=== PATIENT | female | born 1990 | race Caucasian/White ===

== ENCOUNTER 2019-08-14 12:51 | Outpatient (CLI) | payer OTHER, SELFPAY | END 2019-08-14 12:52 | disposition home or self-care (01) | LOC: ANHBWCAUD 12:53 | DX: S09.30 Unspecified injury of middle and inner ear (principal); H90.72 Mixed conductive and sensorineural hearing loss, unilateral, left ear, with unrestricted hearing on the contralateral side | CPT/HCPCS: 92557; 92567 ==

== ENCOUNTER 2019-08-29 13:40 | Outpatient (RCR) | payer OTHER, SELFPAY | END 2019-11-27 23:59 | disposition home or self-care (01) | LOC: ANHBWCAUD 13:40 | DX: Z46.1 Encounter for fitting and adjustment of hearing aid (principal) | CPT/HCPCS: V5241; V5257; V5264 ==

== ENCOUNTER 2020-09-10 09:33 | Outpatient (CLI) | payer OTHER, SELFPAY ==
--- NOTE | ~2020-09-10 | US_ITS ---
EXAMINATION: US OB /maternal detail EXAM DATE: 09/10/2020 10:40 INDICATION: Anatomy scan. 2nd trimester. TECHNIQUE: Pelvic obstetrical transabdominal sonogram was performed by a technologist. There are mu ltiple grayscale and Doppler images available for interpretation. There are no earlier studies of th is gestation for comparison. FINDINGS: There is a single fetus identified in variable presentation with a heart rate of 141 beats per minute. The placenta is located in the posterior fundal position. There is no sonographic eviden ce of retroplacental hemorrhage identified. The amniotic fluid index is 13.5 centimeters, which is no rmal. Placental margin to internal cervical os distance is 9.0 cm. BIOMETRIC DATA: Biparietal diameter (BPD): 4.5cm ----------------> 19 weeks 5 days. Head circumference (HC): 16.7 cm ----------------> 19 weeks 3 days. Abdominal circumference (AC): 15.2 cm ----------> 20 weeks 3 days. Femur length (FL): 3.1 cm --------------------------> 19 weeks 5 days. These measurements are concordant. HC/AC ratio is 1.10 (The 5th -- 95th percentile range is 1.08-1.26. Estimated weight is 326 g +/- 49 g. This is the 94th percentile when the currently reported cl inical gestation age 19 weeks 0 days, clinical estimated date of delivery ([place]) 02/04/2021 is used . estimated gestational age based on measurements from this exam is 19 weeks 6 days, with an es timated date of delivery ([place]) 01/29/2021. ANATOMIC SURVEY: The following anatomy is identified and is sonographically normal in appearance: Cerebral ventricles Cerebellum Cisterna magna Nuchal fold CTL-spine Four-chamber heart Diaphragm Stomach Kidneys Bladder Three-vessel cord Cord insertion The cardiac ventricular outflow tract views are suboptimal. IMPRESSION: 1. Single fetus in variable presentation with heart rate 141 beats per minute. 2. Estimated weight of 326 grams, 94th percentile using the currently reported clinical gestat ion age of 19 weeks 0 days, [place]) 02/04/2021. 3. Suboptimal cardiac views. Four-chamber heart was confirmed. Reviewed, dictated and finalized at location A. UR MARKET ECONOMIST IMPRESSION: 1. Single fetus in variable presentation with heart rate 141 beats per minute. 2. Estimated weight of 326 grams, 94th percentile using the currently re ported clinical gestation age of 19 weeks 0 days, [place]) 02/04/2021. 3. Suboptimal cardiac views. Four-chamber heart was confirmed.
== END 2020-09-10 09:34 | disposition home or self-care (01) ==
LOC: ANHIMG 09:34
PROVIDERS: PCP Internal Medicine; Visit Provider Obstetrics & Gynecology
DX: Z36.9 Encounter for antenatal screening, unspecified (principal); Z3A.19 19 weeks gestation of pregnancy
CPT/HCPCS: 76805

== ENCOUNTER 2020-10-15 13:12 | Outpatient (CLI) | payer OTHER, SELFPAY ==
--- NOTE | ~2020-10-15 | US_ITS ---
EXAMINATION: 2 DATE: 26 INDICATION: 4 TECHNIQUE: Real-time ultrasound of the pelvis was performed. The interpreting radiologist was not pre sent for the study. COMPARISON: 09/10/2020 FINDINGS: There is a single living fetus in vertex presentation. The placenta is posterior. car diac activity and movement are noted. heart rate is 143 beats per minute (bpm). The amnio tic fluid index is subjectively normal. The following biometric data were obtained: Biparietal diameter (BPD): 6.2 cm; head circumference (HC): 22.1 cm; abdominal circumference (AC): 20 .1 cm; femur length (FL): 4.3 cm. The femoral length to biparietal diameter ratio is greater than two standard deviations below the theodora n. These measurements are otherwise concordant. Estimated weight is 713 g +/- 107 g, which correlates with the 70th percentile when 02/04/2021 i s used as estimated date of delivery. As single measurements, these parameters are each equal to the following estimated gestational ages w ith ranges of +/- 2 standard deviations: BPD: 25 weeks 1 days ( 23 weeks 0 days - 27 weeks 3 days). HC: 24 weeks 1 days ( 22 weeks 1 days - 26 weeks 2 days). AC: 24 weeks 5 days ( 22 weeks 4 days - 26 weeks 6 days). FL: 24 weeks 3 days ( 22 weeks 2 days - 26 weeks 4 days). estimated gestational age based solely on measurements from this exam is 24 weeks 4 days +/- 1 weeks 5 days. IMPRESSION: 1. Single living fetus in vertex presentation. 2. Normal-appearing spine and heart. 3. Estimated weight is 713 g +/- 107 g, which correlates with the 70th percentile when is used as estimated date of delivery. 4. Femoral length to biparietal diameter ratio greater than two standard deviations below the mean. Reviewed, dictated and finalized at location A. IMPRESSION: 1. Single living fetus in vertex presentation. 2. Normal-appearing spine and heart. 3. Estimated weight is 713 g +/- 107 g, which correlates with the 70th rcentile when 02/04/2021 is used as estimated date of delivery. 4. Femoral length to biparietal diameter ratio greater than two standard deviat ions below the mean.
== END 2020-10-15 13:13 | disposition home or self-care (01) ==
LOC: ANHIMG 13:19
PROVIDERS: PCP Internal Medicine; Visit Provider Obstetrics & Gynecology
DX: Z36.9 Encounter for antenatal screening, unspecified (principal); Z3A.24 24 weeks gestation of pregnancy
CPT/HCPCS: 76816

== ENCOUNTER 2020-11-09 09:48 | Outpatient (CLI) | payer OTHER, SELFPAY ==
[2020-11-09 18:41] LABS: Basophils Percent Auto 0.3 % (0.2-1.2); Eosinophils Absolute Auto 0.2 K/mm3 (0-0.3); Eosinophils Percent Auto 1.9 % (0-4.4); Hematocrit 33.2 % (37.0-47.0); Hemoglobin 10.8 g/dL (12.0-15.0); Immature Granulocyte Absolute 0.07 K/mm3 (0.00-0.031); Immature Granulocyte Percent A 0.8 % (0-0.5); Lymphocytes Absolute Auto 2.28 K/mm3 (0.9-3.2); Lymphocytes Percent Auto 26.4 % (18.3-44.2); Mean Corpuscular HGB Conc 32.5 g/dl (32-36); Mean Corpuscular Hemoglobin 27.5 pg (26-34); Mean Corpuscular Volume 84.5 fl (80-100); Mean Platelet Volume 9.3 fl (7.4-10.4); Monocytes Absolute Auto 0.6 K/mm3 (0.1-0.6); Monocytes Percent Auto 6.4 % (2.6-8.5); Neutrophils Absolute Auto 5.6 K/mm3 (1.3-6.7); Neutrophils Percent Auto 64.2 % (45.5-73.1); Platelet Count Result 322 k/mm3 (150-375); Red Blood Count 3.93 M/mm3 (4.2-5.4); Red Cell Distribution Width 13.6 % (11.5-14.5); White Blood Count 8.6 K/mm3 (4.5-10.0)
[2020-11-09 18:51] LABS: Glucose 1 Hour PP 50gm Dose 92 mg/dL
[2020-11-09 19:31] LABS: HIV 1/2 Ab P24 Ag Result Negative (Negative)
== END 2020-11-09 09:49 | disposition home or self-care (01) ==
PROVIDERS: PCP Internal Medicine; Visit Provider Obstetrics & Gynecology
DX: Z34.92 Encounter for supervision of normal pregnancy, unspecified, second trimester (principal); Z3A.19 19 weeks gestation of pregnancy
CPT/HCPCS: 36415; 82947; 85025; 86703; G0432

== ENCOUNTER 2020-11-22 11:01 | Outpatient (CLI) | payer OTHER, SELFPAY ==
--- NOTE | ~2020-11-22 | US_ITS ---
EXAMINATION: US OB follow up DATE: 11/22/2020 11:44 INDICATION: growth assessment during third trimester TECHNIQUE: Real-time ultrasound of the pelvis was performed. The interpreting radiologist was not pre sent for the study. COMPARISON: 10/15/2020 FINDINGS: There is a single living fetus in breech presentation. The placenta is fundal. cardia c activity and movement are noted. heart rate is 144 beats per minute (bpm). The amniotic fluid index is 15.1 cm which is normal. The following biometric data were obtained: Biparietal diameter (BPD): 7.5 cm; head circumference (HC): 28.7 cm; abdominal circumference (AC): 26 .9 cm; femur length (FL): 5.9 cm. These measurements are concordant. Estimated weight is 1677 g +/- 251 g, which correlates with the 62nd percentile when 01/29/2021 is used as estimated date of delivery. As single measurements, these parameters are each equal to the following estimated gestational ages w ith ranges of +/- 2 standard deviations: BPD: 30 weeks 2 days +/- 3 weeks 1 days. HC: 31 weeks 4 days +/- 3 weeks 0 days. AC: 31 weeks 0 days +/- 3 weeks 0 days. FL: 30 weeks 6 days +/- 3 weeks 0 days. estimated gestational age based solely on measurements from this exam is 31 weeks 0 days +/- 2 weeks 1 days. IMPRESSION: 1. Single living fetus in breech presentation. 2. Normal amniotic fluid index. 3. Estimated weight is 1677 g +/- 251 g, which correlates with the 62nd percentile when 01/30/20 21 is used as estimated date of delivery. Reviewed, dictated and finalized at location A. IMPRESSION: 1. Single living fetus in breech presentation. 2. Normal amniotic fluid index. 3. Estimated weight is 1677 g +/- 251 g, which correlates with the 62nd p ercentile when 01/29/2021 is used as estimated date of delivery.
== END 2020-11-22 11:02 | disposition home or self-care (01) ==
PROVIDERS: PCP Internal Medicine; Visit Provider Obstetrics & Gynecology
DX: O28.3 Abnormal ultrasonic finding on antenatal screening of mother (principal); Z3A.31 31 weeks gestation of pregnancy
CPT/HCPCS: 76816

== ENCOUNTER 2020-12-24 09:49 | Outpatient (CLI) | payer OTHER, SELFPAY ==
--- NOTE | ~2020-12-24 | US_ITS ---
EXAMINATION: US OB follow up DATE: 12/24/2020 10:15 INDICATION: Maternal care for excessive growth during third trimester . TECHNIQUE: Real-time ultrasound of the pelvis was performed. The interpreting radiologist was not pre sent for the study. COMPARISON: None. FINDINGS: There is a single living fetus in vertex presentation. The placenta is fundal. heart rate is 1 39 beats per minute (bpm). The amniotic fluid index is 15.8 cm, which is normal (5th%-95%: 7.9-24.9 cm at 35 weeks estimated gestational age). The following biometric data were obtained: BPD: 8.9 cm -> 35 weeks 6 days Head circumference: 31.6 cm -> 35 weeks 4 days Abdominal circumference: 30.2 cm -> 34 weeks 1 days Femur length: 6.9 cm -> 35 weeks 1 days These measurements are concordant. Head circumference to abdominal circumference ratio: 1.05 (normal range 0.93-1.11). Estimated weight: 2515 g (+/-) 377 g or 5 lbs. 9 oz. (+/-) 13 oz. IMPRESSION: 1. Single living fetus in vertex presentation with heart rate of 139 bpm. 2. Normal amniotic fluid index of 15.8 cm. 3. Estimated weight is 44th percentile by Hadlock criteria when 01/29/2021 is used as the estima gurpreet date of delivery ([place]). Please correlate with clinical information or earlier ultrasounds for mos t accurate [place]. Reviewed, dictated and finalized at location A. IMPRESSION: 1. Single living fetus in vertex presentation with heart rate of 139 bpm. 2. Normal amniotic fluid index of 15.8 cm. 3. Estimated weight is 44th percentile by Hadlock criteria when 01/29/2021 is used as the estimated date of delivery ([place]). Please correlate with clinica l information or earlier ultrasounds for most accurate [place].
== END 2020-12-24 09:50 | disposition home or self-care (01) ==
LOC: ANHIMG 09:50
PROVIDERS: PCP Internal Medicine; Visit Provider Obstetrics & Gynecology
DX: O36.60X0 Maternal care for excessive fetal growth, unspecified trimester, not applicable or unspecified (principal); Z3A.00 Weeks of gestation of pregnancy not specified
CPT/HCPCS: 76816

== ENCOUNTER 2021-01-31 05:11 | Inpatient (IN) | payer OTHER, SELFPAY ==
[2021-01-31] VITALS (66 sets, daily range): BP systolic 107–168; BP diastolic 49–123; PULSE 64–116; RESP 18–22; TEMP 35.9–36.9; O2SAT 83–100; BMI 53.3
--- NOTE | 2021-01-31 05:32 | LDADM ---
This patient, Aneta Wisdom, was admitted to Labor/Delivery/Recovery 103 on 01/31/21 at 05:11. Plans for labor, pain management and were discussed with patient. Patient/family oriented to hospital policies and general routines including ID bracelet, bed and alarms, visiting hours, pain management, procedures, bathroom and other care routines, personal items, smoking policy, room service/diet and guest tray routines, infant security routines, and visiting hours. Patient/Family are encouraged to report perceived risks to care and to ask questions if they do not understand what they are told or what they should do. See OBIX for further documentation.
[2021-01-31] MEDS: AMPICILLIN 2 GM/NS 100 ML 2 GM/100 ML BAG IVPB (06:03)
[2021-01-31] MEDS: LACTATED RINGERS 1,000 ML 125 ML IV CONT ×2 (06:04→17:01)
[2021-01-31] MEDS: OXYTOCIN 30 UNITS/NS 500 ML 30 UNITS/500 ML BAG IV CONT (06:18)
[2021-01-31 06:19] LABS: Basophils Percent Auto 0.4 % (0.2-1.2); Eosinophils Absolute Auto 0.1 K/mm3 (0-0.3); Eosinophils Percent Auto 1.3 % (0-4.4); Hematocrit 35.6 % (37.0-47.0); Hemoglobin 11.7 g/dL (12.0-15.0); Lymphocytes Percent Auto 33.1 % (18.3-44.2); Mean Corpuscular HGB Conc 32.9 g/dl (32-36); Mean Corpuscular Hemoglobin 26.8 pg (26-34); Mean Corpuscular Volume 81.7 fl (80-100); Mean Platelet Volume 9.5 fl (7.4-10.4); Monocytes Percent Auto 10.3 % (2.6-8.5); Neutrophils Absolute Auto 5.4 K/mm3 (1.3-6.7); Neutrophils Percent Auto 53.9 % (45.5-73.1); Platelet Count Result 303 k/mm3 (150-375); Red Blood Count 4.36 M/mm3 (4.2-5.4); Red Cell Distribution Width 14.6 % (11.5-14.5)
[2021-01-31 06:35] LABS: Amphetamine Screen Urine Negative (Negative); Barbiturate Screen Urine Negative (Negative); Benzodiazepines Screen Urine Negative (Negative); Cannabinoid Screen Urine Positive (Negative); Cocaine Screen Urine Negative (Negative); Methadone Screen Urine Negative (Negative); Opiate Screen Urine Negative (Negative); Phencyclidine Screen Urine Negative (Negative)
[2021-01-31] MEDS: CALCIUM CARBONATE (TUMS) 500 MG (200 MG ELEMENTAL) PO (06:38)
--- NOTE | 2021-01-31 07:42 | PM.IMHP ---
H&P: HPI History of Present Illness Date/Time: 01/31/21 07:42 at 39+3 for elective induction of labor. No complaints Chief Complaint: induction of labor Review of Systems Review of Systems: All systems reviewed & are unremarkable except as noted in HPI and below PMFSH Past Medical History Medical History Acid reflux Asthma Hepatitis C Vaginal delivery X2 09/26/10 Full term male 8lbs 14oz 11/26/14 Full term female 9lbs 5oz Surgical History Surgical History History of ankle surgery 2015, 2017 Family History Family History Mother Diabetes mellitus Hypertension Hyperlipidemia Cerebrovascular accident Grandparent Diabetes mellitus Cerebrovascular accident Hypertension Hyperlipidemia Father Cerebrovascular accident Sibling Hypertension Hyperlipidemia Social History Social History Smoking status: Never smoker Second hand tobacco smoke exposure: No Alcohol intake: former Substance use: current Substance use type: marijuana Last use: November 2020 Spiritual care concerns: No Meds Home Medications and Allergies Home Medications Medication Instructions Recorded Confirmed Type vitamin no.115-iron 29 1 tablet PO DAILY #90 tablet 07/06/20 01/31/21 Rx mg-folic acid 1 mg chewable tablet docusate sodium 100 mg capsule 100 mg PO PRN 08/04/20 01/31/21 History ferrous sulfate 325 mg (65 mg 325 mg PO DAILY 11/17/20 01/31/21 History iron) tablet Allergies Allergy/AdvReac Type Severity Reaction Status Date / Time No Known Allergies Allergy Verified 01/27/21 15:03 Vital Signs Vital Signs - 24 hr 01/31/21 06:19 01/31/21 06:31 01/31/21 06:46 Pulse Rate 84 88 85 Blood Pressure 126/49 L 123/65 124/54 L 01/31/21 07:01 01/31/21 07:16 01/31/21 07:32 Pulse Rate 87 84 73 Blood Pressure 126/82 136/80 126/53 L Exam Const: General: healthy appearing, no acute distress, alert and awake Resp: Auscultation: clear to auscultation bilaterally Cardio: Rate: regular rate Rhythm: regular rhythm GI: Inspection: non-distended and other (gravid) GI Palp: Yes Soft to palpation and No Tenderness to palpation present (GI) : Manual OB Exam: dilated 2 cm, effaced 50% and station -2 Amniotic Fluid: clear (AROM done at 0735) Extrem: General: no pedal edema and no calf tenderness Psych: Mental Status: mental status grossly normal H&P: Results Labs Labs: Short CBC 01/31/21 Range/Units 06:04 WBC 10.0 (4.5-10.0) K/mm3 Hgb 11.7 L (12.0-15.0) g/dL Hct 35.6 L (37.0-47.0) % Plt Count 303 (150-375) k/mm3 Assessment and Plan Assessment and plan (1) Encounter for induction of labor: Code(s): Z34.90 - Encounter for supervision of normal , unspecified, unspecified trimester Status: Acute Assessment and Plan: at 39+3 for elective induction of labor. AROM performed. GBS + so continue pitocin and antibiotics. BTL scheduled tomorrow at 1:30 pm
[2021-01-31 09:52] LABS: Rapid Plasma Reagin Non-Reactive (NonReactive)
[2021-01-31] MEDS: AMPICILLIN 1 GM/NS 50 ML 1 GM/50 ML BAG IVPB ×3 (10:02→17:47)
--- NOTE | 2021-01-31 10:46 | WPDANESEPP ---
Anes - Eval Pre Procedure Procedure: labor epidural Operation Date: 02/01/21 13:30 Proposed Procedures p Post- Bilateral Tubal Ligation - Aneta Huddleston MD Date/Time: 01/31/21 10:46 Pre Op Diagnosis: IOL Patient Data Age: 30 Gender: F Height: 1.7 m Weight: 154.5 kg Last Vital Signs Temp 36.7 C 01/31/21 09:04 Pulse 79 01/31/21 10:32 Resp 18 01/31/21 09:04 BP 107/79 01/31/21 10:32 Allergies Allergy/AdvReac Type Severity Reaction Status Date / Time No Known Allergies Allergy Verified 01/27/21 15:03 Home Medications Medication Instructions Recorded Confirmed Type vitamin no.115-iron 29 1 tablet PO DAILY #90 tablet 07/06/20 01/31/21 Rx mg-folic acid 1 mg chewable tablet docusate sodium 100 mg capsule 100 mg PO PRN 08/04/20 01/31/21 History ferrous sulfate 325 mg (65 mg 325 mg PO DAILY 11/17/20 01/31/21 History iron) tablet Laboratory Tests 01/31/21 01/31/21 01/31/21 06:04 06:04 06:04 WBC 10.0 K/mm3 K/mm3 (4.5-10.0) RBC 4.36 M/mm3 M/mm3 (4.2-5.4) Hgb 11.7 g/dL L g/dL (12.0-15.0) Hct 35.6 % L % (37.0-47.0) MCV 81.7 fl fl (80-100) MCH 26.8 pg pg (26-34) MCHC 32.9 g/dl g/dl (32-36) RDW 14.6 % H % (11.5-14.5) Plt Count 303 k/mm3 k/mm3 (150-375) MPV 9.5 fl fl (7.4-10.4) Immature Gran % (Auto) 1.0 % H % (0-0.5) Neut % (Auto) 53.9 % % (45.5-73.1) Lymph % (Auto) 33.1 % % (18.3-44.2) [place] % (Auto) 10.3 % H % (2.6-8.5) Eos % (Auto) 1.3 % % (0-4.4) Baso % (Auto) 0.4 % % (0.2-1.2) Lymph # (Auto) 3.30 K/mm3 H K/mm3 (0.9-3.2) [place] # (Auto) 1.0 K/mm3 H K/mm3 (0.1-0.6) Eos # (Auto) 0.1 K/mm3 K/mm3 (0-0.3) Baso # (Auto) 0.0 K/mm3 K/mm3 (0.0-0.1) Abs Immat Gran (auto) 0.10 K/mm3 H K/mm3 (0.00-0.031) Absolute Neuts (auto) 5.4 K/mm3 K/mm3 (1.3-6.7) Absolute Nucleated RBC 0.0 K/mm3 K/mm3 (0.0-0.012) Nucleated RBC % 0.0 % % (0.0-0.2) Urine Opiates Screen Urine Methadone Screen Ur Barbiturates Screen Ur Phencyclidine Scrn Ur Amphetamine Screen U Benzodiazepines Scrn Urine Cocaine Screen U Cannabinoids Screen RPR Non-reactive (NonReactive) Blood Type O Positive Antibody Screen Negative 01/31/21 06:06 WBC RBC Hgb Hct MCV MCH MCHC RDW Plt Count MPV Immature Gran % (Auto) Neut % (Auto) Lymph % (Auto) [place] % (Auto) Eos % (Auto) Baso % (Auto) Lymph # (Auto) [place] # (Auto) Eos # (Auto) Baso # (Auto) Abs Immat Gran (auto) Absolute Neuts (auto) Absolute Nucleated RBC Nucleated RBC % Urine Opiates Screen Negative (Negative) Urine Methadone Screen Negative (Negative) Ur Barbiturates Screen Negative (Negative) Ur Phencyclidine Scrn Negative (Negative) Ur Amphetamine Screen Negative (Negative) U Benzodiazepines Scrn Negative (Negative) Urine Cocaine Screen Negative (Negative) U Cannabinoids Screen Positive A (Negative) RPR Blood Type Antibody Screen Patient hx anesthesia problems: none Family hx anesthesia problems: none PMFSH Past Medical History Medical History Acid reflux Asthma Hepatitis C Vaginal delivery X2 09/26/10 Full term male 8lbs 14oz 11/26/14 Full term female 9lbs 5oz Surgical History Surgical History History of ankle surgery 2015, 2017 Family History Family History (Reviewed 01/31/21 @ 10:47 by Isatu
[2021-01-31] MEDS: fentaNYL CITRATE INJ (*CRX) 100 MCG/2 ML VIAL 50 MCG IV PUSH ×2 (13:18→13:45)
[2021-01-31] MEDS: fentaNYL CITRATE INJ (*CRX) 100 MCG/2 ML VIAL IV PUSH ×2 (15:04→16:09)
--- NOTE | 2021-01-31 18:19 | PM.OBPRVD ---
OB - Delivery Note Procedure Delivery date: 01/31/21 Procedure: Procedures Operation Date: 02/01/21 13:30 <No data on this case meets the specified criteria> events: Labor Induction Intrapartal events: None Induction method: AROM and per pitocin protocol Delivery monitor: internal FHT and internal uterine Route of delivery: Laceration Description: Perineal - 2nd Degree Delivery repair: vicryl (3-0) Specimen: No Quantitative Blood Loss (ml): 288 Anesthesia type: Epidural Disposition: floor [place] Baby Date of : 01/31/21 Time of : 17:59 Weeks of gestation at delivery: 39 Infant gender: Male Weight (pounds): 7 Weight (ounces): 8 presentation: vertex position: Right Occiput Anterior Placenta delivery description: Spontaneous cord vessel description: 3 Vessels, Nuchal Cord, Tight, Clamped/Cut and Around Body x1 score one minute: 8 score five minutes: 9
[2021-01-31] MEDS: OXYTOCIN 30 UNITS/NS 500 ML 30 UNITS/500 ML BAG 125 UNITS IV CONT (18:41)
--- NOTE | 2021-01-31 21:31 | OBPPTRN ---
Patient transferred to post room 285. Oriented to unit, room, information board, rooming in, admission packet and security measures. Patient verbalizes understanding. Patient states baby's father is not involved.
[2021-01-31] MEDS: ACETAMINOPHEN 325 MG TABLET 650 MG PO (21:39)
[2021-01-31] MEDS: IBUPROFEN 600 MG TABLET PO (21:39)
[2021-02-01] VITALS (11 sets, daily range): BP systolic 85–149; BP diastolic 53–90; PULSE 62–80; RESP 16–21; TEMP 36–36.9; O2SAT 99–100
[2021-02-01] MEDS: ACETAMINOPHEN 325 MG TABLET 650 MG PO ×4 (04:25→23:13)
[2021-02-01] MEDS: IBUPROFEN 600 MG TABLET PO ×4 (04:25→23:14)
[2021-02-01 05:14] LABS: Hematocrit 32.2 % (37.0-47.0); Hemoglobin 10.2 g/dL (12.0-15.0)
--- NOTE | 2021-02-01 07:43 | WPDANLDPN2 ---
Anes-Prog Note L&D Date/Time: 02/01/21 07:43 Comfortable throughout: labor and delivery Neuraxial method: epidural Epidural/Spinal procedure site: clean & non-tender Neuro status: Neuro function grossly intact. Cardiovascular status: normal Respiratory status: normal Airway patency: baseline Mental status: baseline Post-Op hydration status: normal Vital Signs: Last Vital Signs Temp 36.2 C L 02/01/21 04:20 Pulse 73 02/01/21 04:20 Resp 18 02/01/21 04:20 BP 134/58 L 02/01/21 04:20 Pulse Ox 99 02/01/21 04:20 Pain score (VAS): 2 I/O: Intake & Output 01/31/21 01/31/21 02/01/21 15:59 23:59 07:59 Intake Total 1100 450 Output Total 173 Balance 1100 277 Post-procedural complaints: none Patient feedback: Patient satisfied with anesthetic care.
--- NOTE | 2021-02-01 07:59 | PM.OBPNVD ---
OB - PN: Subj Subjective Date/time seen: 02/01/21 07:59 Patient comments: no complaints, pain well controlled and other (Lochia similar to menses) [place] baby status: doing well OB - PN: Obj Data Labs CBC & Chem 7: 02/01/21 04:07 Labs: Laboratory Results - last 24 hr 01/31/21 02/01/21 06:04 04:07 Hgb 10.2 L Hct 32.2 L RPR Non-reactive OB - PN A/P Assessment and Plan (1) Contraceptive management: Code(s): Z30.9 - Encounter for contraceptive management, unspecified Status: Acute Assessment and Plan: Planning BTL at 1:30 pm today. NPO until then. She wishes to proceed and signed BTL consent Plan day: 1 (s/p vaginal delivery, doing well) Plan: routine care Time Spent With Patient Time: Total time spent is greater than 50% in coordination of care (as documented) at patient's floor/unit and/or counseling patient: Time with patient: less than 15 minutes Exam Const: General: no acute distress GI: Inspection: other (Fundus firm and nontender at umbilicus) GI Palp: Yes Soft to palpation and No Tenderness to palpation present (GI) Extrem: General: no edema
--- NOTE | 2021-02-01 10:38 | PCCCNOTE ---
Addendum entered by Ashley Erwin, VIKRAM 02/01/21 13:40: 1340: Received phone call from Radha with [employer] who reports will come see pt. and baby around 4 PM. RADHA zamora. [phone] due to [place] office being closed. Original Note: Per Care Coordination: Received referral regarding pt. and baby's UDS positive for THC. Baby's meconium is pending. Pt. reports using THC for her appetite. Pt. reports her and baby boy will be living with her brother Efrain in [place], [place]. Pt. reports having two other children, 10 year old son Elder and 6 year old daughter Kyung. Pt. states Elder lives with his father in [place] and Kyung has been adopted by pt's sister Tory due to [employer] terminating pt's maternal rights, and they live in [place]. Pt. reports they terminated rights due to pt's THC usage. Pt. reports having a friend who is a male and his mother was pt's support person. Pt. reports will be having her tubes tied this afternoon and that this baby was a bit of a surprise. Pt. states has all the support I need. Pt. reports having all necessary baby supplies, and denies in need of anything. Pt. reports being set up with both WIC and [employer], and has Medicaid insurance. Pt. reports having prior DCFS involvement, and all cases are said to be closed. Pt. states the leodan recent case was four years ago. Called [employer]CF[employer] and per Elsie Jj, they are taking report and will see pt. within 24 hours. Elsie states it will likely be today and will call Care Coordination prior to coming to confirm pt. is not in surgery at time of visit. Intake Report #[id number]. CANTS [facility] out [facility] [phone]. RADHA Mendoza aware of above.
--- NOTE | 2021-02-01 12:08 | PC.NURSE ---
Patient taken to pre-op per stretcher. Infant out to the nursery with RN.
--- NOTE | 2021-02-01 12:47 | WPDHPUPDATE1 ---
History and Physical Update Update Date/Time: 02/01/21 12:47 History and Physical has been reviewed, including an updated exam of the patient. There are NO changes in the patient's condition. Risks, benefits, and alternatives have been discussed and questions answered. Patient agrees to proceed with procedure.
[2021-02-01] MEDS: LACTATED RINGERS 1,000 ML 30 ML IV CONT ×2 (13:17→15:28)
--- NOTE | 2021-02-01 13:39 | WPDANESEPPF ---
Anes - Initial Pre Proc Eval Procedure: Operation Date: 02/01/21 13:30 Proposed Procedures p Post- Bilateral Tubal Ligation - Aneta Huddleston MD Date/Time: 02/01/21 13:39 Surgeon: Aneta Huddleston MD Pre Op Diagnosis: IOL Patient Data Age: 30 Gender: F Height: 1.7 m Weight: 154.5 kg Last Vital Signs Temp 96.9 F L 02/01/21 12:22 Pulse 69 02/01/21 12:22 Resp 16 02/01/21 12:22 BP 146/72 H 02/01/21 12:22 Pulse Ox 99 02/01/21 12:22 Allergies Allergy/AdvReac Type Severity Reaction Status Date / Time No Known Allergies Allergy Verified 01/27/21 15:03 Home Medications Medication Instructions Recorded Confirmed Type vitamin no.115-iron 29 1 tablet PO DAILY #90 tablet 07/06/20 01/31/21 Rx mg-folic acid 1 mg chewable tablet docusate sodium 100 mg capsule 100 mg PO PRN 08/04/20 01/31/21 History ferrous sulfate 325 mg (65 mg 325 mg PO DAILY 11/17/20 01/31/21 History iron) tablet Laboratory Tests 02/01/21 04:07 Hgb 10.2 g/dL L g/dL (12.0-15.0) Hct 32.2 % L % (37.0-47.0) Patient hx anesthesia problems: none Family hx anesthesia problems: none PMFSH Past Medical History Medical History Acid reflux Asthma Hepatitis C Vaginal delivery X2 09/26/10 Full term male 8lbs 14oz 11/26/14 Full term female 9lbs 5oz Surgical History Surgical History History of ankle surgery 2015, 2017 Family History Family History Mother Diabetes mellitus Hypertension Hyperlipidemia Cerebrovascular accident Grandparent Diabetes mellitus Cerebrovascular accident Hypertension Hyperlipidemia Father Cerebrovascular accident Sibling Hypertension Hyperlipidemia Social History Social History Smoking status: Never smoker Second hand tobacco smoke exposure: No Alcohol intake: never Substance use: current Substance use type: marijuana Last use: November 2020 Living arrangements: with family Spiritual care concerns: No Anes - Eval Final PreProcedure Day of Procedure 02/01/21 13:39 Patient weight: super morbidly obese Heart: regular rate and rhythm Lungs: clear to auscultation Airway: Mallampati scale class III Neurological: alert and oriented Last oral intake: >/= 8 hours ASA classification: III Emergent: no Anesthetic plan: proceed Anesthesia type and monitoring: general ETT and standard monitoring Informed Consent: The patient's anesthetic plan and its attendant risks and benefits were discussed with the patient/family/POA. Questions were solicited and answers provided to the satisfaction of the patient/family/POA.
[2021-02-01] MEDS: BUPIVACAINE/EPINEPHRINE 0.5% 10 ML VIAL 5 ML INFILTRATE (14:45)
--- NOTE | 2021-02-01 15:17 | P.OP_ITS ---
Procedure Note - Detailed Date of Procedure 02/01/21 Pre-op Diagnosis Desires sterilization Post-op Diagnosis same Procedure Performed bilateral tubal ligation Surgeon Aneta Huddleston MD Anesthesia general Indications Desires sterilization, day 1 Findings uterus firm at umbilicus, bilateral normal fallopian tubes Description of Procedure She was taken to the operating room where general anesthesia was obtained. She was prepared and draped in the normal sterile fashion in the dorsal supine position. Marcaine was injected infraumbilically. The infraumbilical fold was tented up using 2 Allis clamps. A skin incision was made in the infraumbilical fold between the 2 Allis clamps. The Allis clamps were repositioned cephalad and caudad. The underlying tissue was with hemostats at. The fascia was tented up with 2 hemostats and entered sharply with the Metzenbaum scissors. The peritoneum was tented up with 2 hemostats and entered sharply with Metzenbaum scissors. The fascial incision was then extended using the Davalos scissors. The patient was air planed towards the right side. The left fallopian tube was found and grasped with a Caroline clamp. The fallopian tube w as followed out to its fimbriated end. The tube was grasped in the mid isthmic portion, and a defect was made in the mesial salpinx using the Bovie cautery. Two free ties of 0 plain gut were placed, and the intervening segment of tube was excised using the Metzenbaum scissors. Excellent hemostasis was visualized. The tube was allowed to return to the abdomen. The same procedure was performed to identify the right fallopian tube. It was followed to its fimbriated end. A segment of the mid isthmic portion of fallopian tube was excised after 2 free ties of 0 plain gut were placed on the right fallopian tube. Excellent hemostasis was visualized, and the right fallopian tube was allowed to return to the abdomen. Hemostasis was visualized. The fascia was grasped with 2 Ashley clamps at each end. The fascia was closed using 0 Vicryl in a running fashion. The subcutaneous tissue was irrigated and bleeding points were cauterized. The skin was closed using 4 0 Monocryl in subcuticular fashion. She tolerated the procedure well. Sponge, lap, needle, and instrument counts were correct x2. She was taken to the recovery room in stable condition. Estimated Blood Loss 10 Drains No Packing No Pathology yes Complications No immediate complications Condition stable Disposition PACU
[2021-02-01] MEDS: fentaNYL CITRATE INJ (*CRX) 100 MCG/2 ML VIAL 25 MCG IV PUSH ×6 (15:39→16:32)
--- NOTE | 2021-02-01 16:36 | SUR.PHASEI ---
PT STATES PAIN IMPROVED TO 3-4/10 NOW. STATES SHE IS READY TO GO BACK TO ROOM.
--- NOTE | 2021-02-01 16:47 | PC.NURSE ---
This patient, Aneta Wisdom, was received from PACU per bed on 02/01/21 at 1647. Patient/family oriented to unit policies and routines
--- NOTE | 2021-02-02 07:43 | PM.OBPNVD ---
OB - PN: Subj Subjective Date/time seen: 02/02/21 07:43 Patient comments: no complaints, pain well controlled, incisional pain, tolerating diet and other (Lochia similar to menses) [place] baby status: doing well OB - PN: Obj Data Labs CBC & Chem 7: 02/01/21 04:07 OB - PN A/P Assessment and Plan (1) Encounter for sterilization: Code(s): Z30.2 - Encounter for sterilization Status: Acute Assessment and Plan: Doing well postop day 1 s/p BTL Plan day: 2 (s/p vaginal delivery, doing well) Plan: routine care, discharge home and other (Follow up in office in 2 weeks) Time Spent With Patient Time: Total time spent is greater than 50% in coordination of care (as documented) at patient's floor/unit and/or counseling patient: Time with patient: less than 15 minutes Exam Const: General: no acute distress GI: Inspection: incision (intact healing well without erythema, drainage, or induration) and other (Fundus firm and nontender below umbilicus) GI Palp: Yes Soft to palpation and No Tenderness to palpation present (GI) Extrem: General: no edema
--- NOTE | 2021-02-02 07:45 | PM.OBDSVD ---
DS: Admitting Diagnosis Admitting Diagnosis induction of labor DS: Discharge Diagnosis Discharge Diagnosis (1) Vaginal delivery: Code(s): O80 - Encounter for full-term uncomplicated delivery Status: Acute (2) Encounter for sterilization: Code(s): Z30.2 - Encounter for sterilization Status: Acute OB - DS: Summary OB Procedures : None OB Procedures Intrapartum: Spontaneous Vag Delivery OB Procedures: : P.P. tubal ligation Peripartum Data Delivery Method: Natural Vaginal Laceration Description: Perineal - 2nd Degree Procedures: Procedures Operation Date: 02/01/21 13:30 Actual Procedure Side Surgeon p Post- Bilateral Tubal Ligation Bilateral Aneta Huddleston MD complications: none Status at Discharge Functional status at discharge: independent ambulation Overall status at discharge: patient is progressing back to baseline Time Spent with Patient Time attestation: Total time spent providing and/or coordinating discharge services: Time spent: Less than 30 minutes DS: Data Data Completed and Pending Pending studies at discharge: Pending at discharge 02/01/21 15:03 Surgical [PTH] Routine Surgical [PTH] Routine Discharge Plan Discharge Attending physician on discharge: Aneta Huddleston Discharging Clinician: Aneta Huddleston Patient Disposition: Home, Self-Care Activity: may shower and pelvic rest Diet: as tolerated Wound Care Instructions: incision open to air Patient Instructions: Antibiotic Form Stand Alone Forms: General Discharge Information Follow-up/Referrals: Aneta Huddleston MD [Physician] - 2 Weeks Discharge Medications: New hydrocodone-acetaminophen 5-325 mg tablet 1 tablet PO Q6H PRN (Reason: pain) Qty: 20 RF: 0 ibuprofen 600 mg Tablet 600 mg PO Q6H PRN (Reason: Cramping) Qty: 60 RF: 0 ibuprofen 600 mg tablet 600 mg PO Q6H PRN (Reason: pain) Qty: 60 RF: 0 Continued docusate sodium [Stool Softener] 100 mg capsule 100 mg PO PRN RF: 0 ferrous sulfate [Feosol] 325 mg (65 mg iron) tablet 325 mg PO DAILY RF: 0 19 29 mg iron- 1 mg tablet,chewable 1 tablet PO DAILY Qty: 90 RF: 2 Date of admission: 01/31/21 05:11 Primary Care Provider: Jessica,Zi Admitting Provider: Aneta Huddleston Attending physician on admission: Aneta Huddleston Condition: Stable
[2021-02-02] MEDS: DOCUSATE SODIUM 100 MG CAPSULE PO (08:16)
[2021-02-02] MEDS: FERROUS SULFATE 324 MG TABLET PO (08:16)
[2021-02-02] MEDS: ACETAMINOPHEN 325 MG TABLET 650 MG PO ×2 (08:16→14:07)
[2021-02-02] MEDS: IBUPROFEN 600 MG TABLET PO ×2 (08:17→14:07)
[2021-02-02] MEDS: MULTIVIT/MIN/PREN/FOL AC/IRON TABLET 1 TAB PO (08:17)
[2021-02-02 08:20] VITALS: BP 118/49; PULSE 62; RESP 16; TEMP 37; O2SAT 99
--- NOTE | 2021-02-02 08:51 | WPDANESPN ---
Anes - Prog Note Post-Op Date/Time: 02/02/21 08:51 Cardiovascular status: normal Respiratory status: normal Airway patency: baseline Mental status: baseline Post-Op hydration status: normal Vital Signs: Last Vital Signs Temp 36.7 C 02/01/21 20:00 Pulse 78 02/01/21 20:00 Resp 18 02/01/21 20:00 BP 117/53 L 02/01/21 20:00 Pulse Ox 99 02/01/21 20:00 Pain Score (VAS): 0 I/O: Intake & Output 02/01/21 02/02/21 02/02/21 23:59 07:59 15:59 Intake Total 200 Balance 200 Laboratory Tests 02/01/21 04:07 Post-procedural complaints: none Patient Feedback: Patient satisfied with anesthetic care.
--- NOTE | 2021-02-02 09:30 | PC.NURSE ---
[facility] here to see pt.
--- NOTE | 2021-02-02 15:49 | PCCCNOTE ---
Care Coordination: Did receive call from [facility] Radha @ [phone] and nursing that pt. has been cleared by [facility] to discharge home with Baby Jacki. Pt. aware and discharging.
[2021-02-03 08:36] VITALS: BP 114/58; PULSE 69; RESP 18; TEMP 36.8; O2SAT 100
== END 2021-02-02 15:51 | disposition home or self-care (01) | DRG 541 ==
LOC: ANHLDR 08:12 → ANHOB2 20:52
PROVIDERS: Admitting Provider Obstetrics & Gynecology; PCP Internal Medicine; Visit Provider Obstetrics & Gynecology
PROC: (CPT 58605; principal; 2021-02-01 13:30)
DX: O99.824 Streptococcus B carrier state complicating childbirth (principal); Z37.0 Single live birth; Z3A.39 39 weeks gestation of pregnancy; O70.1 Second degree perineal laceration during delivery; O99.52 Diseases of the respiratory system complicating childbirth; J45.909 Unspecified asthma, uncomplicated; O99.62 Diseases of the digestive system complicating childbirth; K21.9 Gastro-esophageal reflux disease without esophagitis; E66.01 Morbid (severe) obesity due to excess calories; O69.2XX0 Labor and delivery complicated by other cord entanglement, with compression, not applicable or unspecified; Z30.2 Encounter for sterilization; O98.42 Viral hepatitis complicating childbirth; B19.20 Unspecified viral hepatitis C without hepatic coma; O99.323 Drug use complicating pregnancy, third trimester; F12.90 Cannabis use, unspecified, uncomplicated
CPT/HCPCS: 36415; 80307; 85014; 85018; 85025; 86592; 86850; 86900; 86901; 88302; A9270; J0290; J0330; J1100; J2250; J2405; J2590; J2704; J3010; J7120

== ENCOUNTER 2021-12-14 18:10 | Emergency (ER) | payer OTHER, SELFPAY ==
[2021-12-14 18:17] VITALS: PULSE 70; RESP 18; TEMP 36.7; O2SAT 100
--- NOTE | 2021-12-14 18:28 | ED.URI ---
HPI - URI/Sore Throat General Chief Complaint: Upper Respiratory Infection Stated Complaint: cough History of Present Illness HPI Narrative: 31-year-old female presents to the emergency room for evaluation of sinus congestion, postnasal drip, sneezing, runny nose and nonproductive cough. Patient states she has a history of asthma and seasonal allergies Patient states that she has been using her son's nebulizer machine with little relief. Patient denies fever, shortness of breath, difficulty breathing or chest pain. Related Data Home Medications Medication Instructions Recorded Confirmed multivitamin 1 tablet PO DAILY 03/01/21 09/07/21 Allergies Allergy/AdvReac Type Severity Reaction Status Date / Time No Known Allergies Allergy Verified 09/07/21 14:57 Review of Systems Review of Systems: CONSTITUTIONAL: Denies fever, chills, or sweats. EYES: Denies visual changes, redness, or discharge. ENT: Reports rhinorrhea, congestion, sore throat, or otalgia. CARDIOVASCULAR: Denies chest pain, palpitations, or edema. RESPIRATORY: Denies cough or dyspnea. GASTROINTESTINAL: Denies abdominal pain, nausea, vomiting, or diarrhea. GENITOURINARY: Denies dysuria or hematuria. SKIN: Denies rash or itching. MUSCULOSKELETAL: Denies back pain, joint pain, or myalgia. NEUROLOGIC: Denies headache, numbness, dizziness, or weakness. PSYCHIATRIC: Denies anxiety or depression. [facility] Past Medical History Medical History Abnormal Pap smear of cervix 05/17/21, LSIL Acid reflux Asthma Hepatitis C Vaginal delivery X3 Surgical History Surgical History History of ankle surgery 2015, 2017 History of bilateral tubal ligation 01/31/21 History of colposcopy 09/07/21 Family History Family History Mother Diabetes mellitus Hypertension Hyperlipidemia Cerebrovascular accident Grandparent Diabetes mellitus Cerebrovascular accident Hypertension Hyperlipidemia Father Cerebrovascular accident Sibling Hypertension Hyperlipidemia Social History Social History Smoking status: Never smoker Second hand tobacco smoke exposure: No Alcohol intake: never Substance use: current Substance use type: marijuana Last use: November 2020 Spiritual care concerns: No Exam Narrative: GENERAL: Well-appearing, well-nourished, and in no acute distress. HEAD: Normocephalic, atraumatic. EYES: PERRLA and EOMI. ENT: Clear rhinorrhea with no epistaxis. Mucous membranes moist. Oropharynx without tonsillar hypertrophy exudate or other lesions. Bilateral TMs pearly shepard nonbulging, with clear effusion CHEST: Clear to auscultation. No respiratory distress. No wheezes rales or rhonchi HEART: Regular rate and rhythm. No murmur heard. Normal peripheral pulses. EXTREMITIES: Normal range of motion. No edema. SKIN: Warm, dry, no rash. NEURO: No focal deficits. Alert and oriented x3. PSYCH: Normal mood and affect. Course Vital Signs Vital signs: Vital Signs Temperature 36.7 C 12/14/21 18:17 Pulse Rate 70 12/14/21 18:17 Respiratory Rate 18 12/14/21 18:17 Pulse Oximetry 100 12/14/21 18:17 Oxygen Delivery Room Air 12/14/21 18:17 Temperature 36.7 C 12/14/21 18:17 Pulse Rate 70 12/14/21 18:17 Respiratory Rate 18 12/14/21 18:17 Pulse Oximetry 100 12/14/21 18:17 Oxygen Delivery Room Air 12/14/21 18:17 Discharge Plan Discharge Clinical Impression: Upper respiratory infection Patient Disposition: Home, Self-Care Condition: Stable Instructions: Antibiotic Form, Allergic Rhinitis (ED), Cold Symptoms (ED) Prescriptions: New cetirizine-pseudoephedrine [Allergy Relief-D (cetirizine)] 5-120 mg tablet extended release 12 hr 1 tablet PO BID Qty: 20 0RF prednisone 20
== END 2021-12-14 19:30 | disposition home or self-care (01) ==
PROVIDERS: Emergency Provider Nurse Practitioner Family
DX: J06.9 Acute upper respiratory infection, unspecified (principal); K21.9 Gastro-esophageal reflux disease without esophagitis; J45.909 Unspecified asthma, uncomplicated; Z86.19 Personal history of other infectious and parasitic diseases
CPT/HCPCS: 96372; 99283; J1100

== ENCOUNTER 2022-02-06 15:44 | Emergency (ER) | payer OTHER, SELFPAY ==
--- NOTE | 2022-02-06 15:47 | ED.EAR ---
HPI - Ear Problem General Chief complaint: Ear Stated complaint: right ear pain Time Seen by Provider: 02/06/22 15:47 Source: patient and RN notes reviewed History of Present Illness HPI Narrative: Patient is a 32-year-old female who presents the urgent care with complaints of right ear pain for the last 2 to 3 days. Patient states that for the last week she has had a lot of nasal congestion and postnasal drainage. Patient has been taking allergy medication without any relief to the right ear. 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 Denies of any other upper respiratory complaints. Denies of any fever. No other acute complaints. No acute distress noted. Patient aware of the plan of care. Some parts of this dictation were generated by voice recognition software and may contain typographical and/or grammatical inaccuracies. Related Data Home Medications Medication Instructions Recorded Confirmed multivitamin 1 tablet PO DAILY 03/01/21 02/06/22 Allergies Allergy/AdvReac Type Severity Reaction Status Date / Time No Known Allergies Allergy Verified 02/06/22 15:58 Review of Systems Review of Systems: CONSTITUTIONAL: Denies fever, chills, or sweats. EYES: Denies visual changes, redness, or discharge. ENT: Denies rhinorrhea, congestion, sore throat. Reports of right otalgia CARDIOVASCULAR: Denies chest pain, palpitations, or edema. RESPIRATORY: Denies cough or dyspnea. GASTROINTESTINAL: Denies abdominal pain, nausea, vomiting, or diarrhea. GENITOURINARY: Denies dysuria or hematuria. SKIN: Denies rash or itching. MUSCULOSKELETAL: Denies back pain, joint pain, or myalgia. NEUROLOGIC: Denies headache, numbness, or weakness. All other systems reviewed are negative, except as documented in HPI. [facility] Past Medical History Medical History Abnormal Pap smear of cervix 05/17/21, LSIL Acid reflux Asthma Hepatitis C Vaginal delivery X3 Surgical History Surgical History History of ankle surgery 2015, 2018 History of bilateral tubal ligation 01/31/21 History of colposcopy 09/07/21 Family History Family History Mother Diabetes mellitus Hypertension Hyperlipidemia Cerebrovascular accident Grandparent Diabetes mellitus Cerebrovascular accident Hypertension Hyperlipidemia Father Cerebrovascular accident Sibling Hypertension Hyperlipidemia Social History Social History Smoking status: Never smoker Second hand tobacco smoke exposure: No Alcohol intake: never Substance use: current Substance use type: marijuana Last use: November 2020 Spiritual care concerns: No Comments At the time of my signature, I reviewed and agree with the nursing past medical, surgical, social, and family history. There is no relevant family history pertinent to the patient complaint. Exam Narrative: GENERAL: This is a well-nourished, well-developed patient, in no apparent distress. HEAD: normocephalic, atraumatic. EYES: PERRL. Sclera clear/white. Vision is grossly intact. EARS: External ears normal, auditory canals clear and without drainage, mild bilateral effusions without otitis, TMs normal without perforation. Hearing grossly intact. NOSE: External nose normal with no obvious nasal discharge, nares without redness, clear to yellow rhinorrhea. THROAT: Mucous membranes moist, posterior pharynx clear. Moderate postnasal drainage NECK: Neck supple CARDIOVASCULAR: Regular rate and rhythm without murmurs, gallops, or rubs. RESPIRATORY: Clear to auscultation. Breath sounds equal bilaterally. No wheezes, rales, or rhonchi. SKIN: warm, intact with no suspicious lesions or rash, good texture and turgor. NEURO: awake, alert, and oriented to person
[2022-02-06 15:50] VITALS: BP 142/81; PULSE 75; RESP 20; TEMP 36.2; O2SAT 98
== END 2022-02-06 16:13 | disposition home or self-care (01) ==
PROVIDERS: Emergency Provider Nurse Practitioner Family; PCP Internal Medicine
DX: H92.01 Otalgia, right ear (principal); K21.9 Gastro-esophageal reflux disease without esophagitis; J45.909 Unspecified asthma, uncomplicated; Z86.19 Personal history of other infectious and parasitic diseases
CPT/HCPCS: 99213; G0463

== ENCOUNTER 2022-05-11 12:04 | Emergency (ER) | payer OTHER, SELFPAY ==
--- NOTE | 2022-05-11 12:13 | ED.URI ---
HPI - URI/Sore Throat General Chief Complaint: Upper Respiratory Infection Stated Complaint: Chills/Cough Time Seen by Provider: 05/11/22 12:18 Source: patient and RN notes reviewed Mode of arrival: ambulatory Limitations: no limitations History of Present Illness HPI Narrative: 32-year-old female presents with concern for cough, sweats, chills, body aches this started last night. She has a history of asthma. She did not use her inhaler today. She denies she has ever been hospitalized for asthma. MD elicited complaint: cough Related Data Home Medications Medication Instructions Recorded Confirmed albuterol sulfate 90 mcg/actuation 2 puff inhalation QID PRN 05/11/22 05/11/22 aerosol inhaler Shortness Of Breath Or Wheezing Allergies Allergy/AdvReac Type Severity Reaction Status Date / Time No Known Allergies Allergy Verified 05/11/22 12:26 Review of Systems Review of Systems: CONSTITUTIONAL: Reports malaise, chills, sweats, fever. EYES: Denies visual changes, redness, or discharge. ENT: Reports rhinorrhea, congestion. Denies sinus pain, otalgia and sore throat. CARDIOVASCULAR: Denies chest pain, palpitations, or edema. RESPIRATORY: Reports cough, wheezing. Denies dyspnea. GASTROINTESTINAL: Denies abdominal pain, nausea, vomiting, diarrhea SKIN: Denies rash or itching. MUSCULOSKELETAL: Reports myalgia. NEUROLOGIC: Denies headache. All systems reviewed & are unremarkable except as noted in HPI and below PMFSH Past Medical History Medical History Abnormal Pap smear of cervix 05/17/21, LSIL Acid reflux Asthma Hepatitis C Vaginal delivery X3 Surgical History Surgical History History of ankle surgery 2015, 2018 History of bilateral tubal ligation 01/31/21 History of colposcopy 09/07/21 Family History Family History Mother Diabetes mellitus Hypertension Hyperlipidemia Cerebrovascular accident Grandparent Diabetes mellitus Cerebrovascular accident Hypertension Hyperlipidemia Father Cerebrovascular accident Sibling Hypertension Hyperlipidemia Social History Social History Smoking status: Never smoker Second hand tobacco smoke exposure: No Alcohol intake: never Substance use: current Substance use type: marijuana Last use: November 2020 Spiritual care concerns: No Comments At time of signature, agree with nursing past medical, surgical, social and family history. There is no relevant family history pertinent to the presenting complaint Exam Narrative: GENERAL: Well-appearing, well-nourished, and in no acute distress. HEAD: Normocephalic EYES: PERRLA, conjunctivae clear ENT: Nares clear, clear discharge. Mucous membranes moist. TM pearly shepard with dull light reflex bilaterally; no tragal tenderness. Oropharynx not erythematous without lesions. Tonsils not enlarged and without exudate, no drooling, no hoarseness, no trismus, uvula midline. NECK: Supple. No lymphadenopathy CHEST: Expiratory wheeze that clears with coughing, otherwise Clear to auscultation, breath sounds equal. No rhonchi, rales, or stridor. No respiratory distress, speaks in full sentences. HEART: Regular rate and rhythm. No murmur heard. SKIN: Warm, dry, no rash. NEURO: Alert and oriented x3. PSYCH: Normal mood and affect Course Course Emergency Course: Patient is aware of diagnosis, understands and agrees to treatment plan. Anticipatory guidance given. Patient agrees to follow-up as directed and is aware of reasons to seek care at the emergency department. Portions of this record may have been created with voice recognition software Level of Care: Express Care Visit Vital Signs Vital signs: Reviewed. MDM - URI/Sore Throat MDM Narrative Medical decision making narrative:
[2022-05-11 12:14] VITALS: BP 151/91; PULSE 114; RESP 18; TEMP 36.8; O2SAT 100
== END 2022-05-11 12:30 | disposition home or self-care (01) ==
PROVIDERS: Emergency Provider Nurse Practitioner; PCP Internal Medicine
DX: J10.1 Influenza due to other identified influenza virus with other respiratory manifestations (principal); K21.9 Gastro-esophageal reflux disease without esophagitis; J45.909 Unspecified asthma, uncomplicated
CPT/HCPCS: 87804; 99213; G0463

== ENCOUNTER 2022-11-27 08:43 | Emergency (ER) | payer OTHER, SELFPAY ==
[2022-11-27 08:48] VITALS: BP 135/75; PULSE 78; RESP 20; TEMP 36.6; O2SAT 100
[2022-11-27 08:53] VITALS: BP 135/75; PULSE 78; RESP 20; TEMP 36.6; O2SAT 100
--- NOTE | 2022-11-27 08:53 | ED.URI ---
HPI - URI/Sore Throat General Chief Complaint: Upper Respiratory Infection Stated Complaint: cough/congestion/ear Time Seen by Provider: 11/27/22 08:52 Source: patient and RN notes reviewed Mode of arrival: ambulatory Limitations: no limitations History of Present Illness HPI Narrative: 32-year-old female presents with concern for left ear pain, cough. She reports drainage from her left ear. She reports she has been sick for about 2 weeks, she is on day 2 of a steroid for a problem with her knee. She reports she also has an albuterol inhaler that she last used yesterday. She reports she has been taking Sudafed. MD elicited complaint: cough and other (Ear pain) Related Data Allergies Allergy/AdvReac Type Severity Reaction Status Date / Time No Known Allergies Allergy Verified 05/11/22 12:26 Review of Systems Review of Systems: CONSTITUTIONAL: Reports malaise. Denies chills, sweats, or fever. EYES: Denies visual changes, redness, or discharge. ENT: Reports rhinorrhea, congestion, left otalgia CARDIOVASCULAR: Denies chest pain, palpitations, or edema. RESPIRATORY: Reports cough. Denies dyspnea. GASTROINTESTINAL: Denies abdominal pain, nausea, vomiting, diarrhea SKIN: Denies rash or itching. MUSCULOSKELETAL: Denies myalgia. NEUROLOGIC: Denies headache. All systems reviewed & are unremarkable except as noted in HPI and below PMFSH Past Medical History Medical History Abnormal Pap smear of cervix 05/17/21, LSIL Acid reflux Asthma Hepatitis C Vaginal delivery X3 Surgical History Surgical History History of ankle surgery 2015, 2017 History of bilateral tubal ligation 01/31/21 History of colposcopy 09/07/21 Family History Family History Mother Diabetes mellitus Hypertension Hyperlipidemia Cerebrovascular accident Grandparent Diabetes mellitus Cerebrovascular accident Hypertension Hyperlipidemia Father Cerebrovascular accident Sibling Hypertension Hyperlipidemia Social History Social History Smoking status: Never smoker Second hand tobacco smoke exposure: No Alcohol intake: former Substance use: current Substance use type: marijuana Last use: November 2020 Living arrangements: with family Spiritual care concerns: No Comments At time of signature, agree with nursing past medical, surgical, social and family history. There is no relevant family history pertinent to the presenting complaint Exam Narrative: GENERAL: Nontoxic and in no acute distress. HEAD: Normocephalic EYES: PERRLA, conjunctivae clear ENT: Nares clear, turbinates edematous and erythematous, clear discharge. Mucous membranes moist. TM erythematous and bulging bilaterally; no tragal tenderness. Oropharynx not erythematous without lesions. Tonsils not enlarged and without exudate, no drooling, no hoarseness, no trismus, uvula midline. NECK: Supple. No lymphadenopathy CHEST: Clear to auscultation, breath sounds equal. No wheezing, rhonchi, rales, or stridor. No respiratory distress, speaks in full sentences. Cough noted HEART: Regular rate and rhythm. No murmur heard. SKIN: Warm, dry, no rash. NEURO: Alert and oriented x3. PSYCH: Normal mood and affect Course Course Emergency Course: Patient is aware of diagnosis, understands and agrees to treatment plan. Anticipatory guidance given. Patient agrees to follow-up as directed and is aware of reasons to seek care at the emergency department. Portions of this record may have been created with voice recognition software Level of Care: Express Care Visit Vital Signs Vital signs: Vital Signs Temperature 97.8 F 11/27/22 08:48 Pulse Rate 78 11/27/22 08:48 Respiratory Rate 20 11/27/22 08:48 Blood Pressure 135/75 11/27/22
== END 2022-11-27 09:06 | disposition home or self-care (01) ==
PROVIDERS: Emergency Provider Nurse Practitioner; PCP Internal Medicine
DX: H66.93 Otitis media, unspecified, bilateral (principal); J40 Bronchitis, not specified as acute or chronic; K21.9 Gastro-esophageal reflux disease without esophagitis; J45.909 Unspecified asthma, uncomplicated; Z86.19 Personal history of other infectious and parasitic diseases
CPT/HCPCS: 99213; G0463

== ENCOUNTER 2023-08-10 13:30 | Emergency (ER) | payer OTHER, SELFPAY ==
[2023-08-10 13:34] VITALS: BP 151/81; PULSE 91; RESP 18; TEMP 36.7; O2SAT 100
--- NOTE | 2023-08-10 14:02 | ED.URI ---
HPI - URI/Sore Throat General Chief Complaint: Upper Respiratory Infection Stated Complaint: Cough/Sore Throat/Bodyache Time Seen by Provider: 08/10/23 14:03 Source: patient Mode of arrival: ambulatory Limitations: no limitations History of Present Illness HPI Narrative: 33-year-old female presents with complaint of nasal congestion, fatigue, cough, sore throat, body aches, fever for 3 days. Not taking any [id number] medications to treat her symptoms. States she has been using her son's albuterol to treat cough. No shortness of breath or chest pain at this time. Denies nausea vomiting diarrhea. All systems reviewed and negative except as noted above. Related Data Home Medications Medication Instructions Recorded Confirmed No Home Medications 08/10/23 08/10/23 Allergies Allergy/AdvReac Type Severity Reaction Status Date / Time No Known Allergies Allergy Verified 08/10/23 13:41 Review of Systems Review of Systems: CONSTITUTIONAL: Reports fever, chills, or sweats. EYES: Denies visual changes, redness, or discharge. ENT: Reports rhinorrhea, congestion, sore throat. Denies otalgia. CARDIOVASCULAR: Denies chest pain, palpitations, or edema. RESPIRATORY: Reports cough. Denies dyspnea. GASTROINTESTINAL: Denies abdominal pain, nausea, vomiting, or diarrhea. GENITOURINARY: Denies dysuria or hematuria. SKIN: Denies rash or itching. MUSCULOSKELETAL: Denies back pain, joint pain, or myalgia. NEUROLOGIC: Denies headache, numbness, or weakness. PSYCHIATRIC: Denies anxiety or depression. All other systems reviewed are negative, except as documented in HPI. [facility] Past Medical History Medical History Abnormal Pap smear of cervix 05/17/21, LSIL Acid reflux Asthma Hepatitis C Vaginal delivery X3 Surgical History Surgical History History of ankle surgery 2015, 2017 History of bilateral tubal ligation 01/31/21 History of colposcopy 09/07/21 Family History Family History Mother Diabetes mellitus Hypertension Hyperlipidemia Cerebrovascular accident Grandparent Diabetes mellitus Cerebrovascular accident Hypertension Hyperlipidemia Father Cerebrovascular accident Sibling Hypertension Hyperlipidemia Social History Social History Smoking status: Never smoker Second hand tobacco smoke exposure: No Alcohol intake: former Substance use: current Substance use type: marijuana Last use: November 2020 Living arrangements: with family Spiritual care concerns: No Comments At time of signature, agree with nursing past medical, surgical, social and family history. There is no relevant family history pertinent to the presenting complaint. Exam Narrative: GENERAL: This is a well-nourished, well-developed patient, in no apparent distress. HEAD: normocephalic, atraumatic. EYES: PERRL. Sclera clear/white. Vision is grossly intact. EARS: External ears normal, auditory canals clear and without drainage, TMs normal without perforation. Hearing grossly intact. NOSE: External nose normal with clear nasal drainage, moderate congestion. THROAT: Mucous membranes moist, erythema with postnasal drainage. No exudates or swelling. NECK: Neck supple, non-tender without lymphadenopathy, masses or thyromegaly. CARDIOVASCULAR: Regular rate and rhythm without murmurs, gallops, or rubs. RESPIRATORY: Clear to auscultation. Breath sounds equal bilaterally. No wheezes, rales, or rhonchi. SKIN: warm, Dry, intact with no suspicious lesions or rash, good texture and turgor. NEURO: awake, alert, and oriented to person, place and time. There were no obvious focal neurologic abnormalities. EXTREMITIES: No joint tenderness, effusion, or edema noted. Course Course Level of Care: Expre
== END 2023-08-10 14:05 | disposition home or self-care (01) ==
PROVIDERS: Emergency Provider Nurse Practitioner Family; PCP Internal Medicine
DX: J10.1 Influenza due to other identified influenza virus with other respiratory manifestations (principal); Z20.822 Contact with and (suspected) exposure to COVID-19; F12.90 Cannabis use, unspecified, uncomplicated; K21.9 Gastro-esophageal reflux disease without esophagitis; J45.909 Unspecified asthma, uncomplicated
CPT/HCPCS: 87081; 87426; 87804; 87880; 99213; G0463

== ENCOUNTER 2024-03-24 15:40 | Emergency (ER) | payer OTHER, SELFPAY ==
[2024-03-24 15:45] VITALS: BP 138/74; PULSE 77; RESP 18; TEMP 36.5; O2SAT 99
--- NOTE | 2024-03-24 15:57 | ED.WOUNDLAC ---
HPI - Wound/Laceration General Chief Complaint: Wound/Laceration Stated Complaint: Laceration to Toe Time Seen by Provider: 03/24/24 15:58 Source: patient Mode of arrival: ambulatory Limitations: no limitations History of Present Illness HPI narrative: 34-year-old female presented for complaint of laceration to the right great toe sustained 2 days ago. She states she cut the toe on a raised nail on the trim of her [employer] rooms. At the time she cleansed the site with hydrogen peroxide and has continued to do so. Endorses pain with ambulation. Denies swelling. Says tetanus is up-to-date. Related Data Home Medications Medication Instructions Recorded Confirmed escitalopram oxalate 5 mg tablet mg 03/24/24 meloxicam 15 mg tablet mg 03/24/24 tizanidine 4 mg tablet mg 03/24/24 Allergies Allergy/AdvReac Type Severity Reaction Status Date / Time No Known Allergies Allergy Verified 08/10/23 13:41 Review of Systems Review of Systems: CONSTITUTIONAL: Denies body aches, fever, chills, or sweats. EYES: Denies visual changes, redness, or discharge. ENT: Denies rhinorrhea, congestion CARDIOVASCULAR: Denies chest pain, palpitations, or edema. RESPIRATORY: Denies cough or dyspnea. GASTROINTESTINAL: Denies abdominal pain, nausea, vomiting, or diarrhea. SKIN: reports laceration right great toe MUSCULOSKELETAL: Denies back pain, joint pain, or myalgia. NEUROLOGIC: Denies headache, numbness, tingling, or weakness. PMFSH Past Medical History Medical History Abnormal Pap smear of cervix 05/17/21, LSIL Acid reflux Asthma Hepatitis C Vaginal delivery X3 Surgical History Surgical History History of ankle surgery 2015, 2017 History of bilateral tubal ligation 01/31/21 History of colposcopy 09/07/21 Family History Family History Mother Diabetes mellitus Hypertension Hyperlipidemia Cerebrovascular accident Grandparent Diabetes mellitus Cerebrovascular accident Hypertension Hyperlipidemia Father Cerebrovascular accident Sibling Hypertension Hyperlipidemia Social History Social History Smoking status: Never smoker Second hand tobacco smoke exposure: No Alcohol intake: former Substance use: current Substance use type: marijuana Last use: November 2020 Living arrangements: with family Spiritual care concerns: No Comments At time of signature, I have reviewed and agree with nursing past medical, surgical, social and family history unless otherwise noted. Please see nursing chart for further information. There is no relevant family history pertinent to the presenting complaint Exam Narrative: GENERAL: Well-appearing EYES: conjunctivae clear, and EOMI. ENT: Mucous membranes moist. CHEST: Clear to auscultation. HEART: Regular rate and rhythm. SKIN: Warm, dry. Right great toe plantar surface with 2.5 cm linear healing laceration. Wound edges approx 2mm gaping, Wound bed pink; Scant serous fluid noted. No swelling or induration. NEURO: Alert and oriented x3. Course Course Emergency Course: Patient is aware of diagnosis, understands and agrees to treatment plan. Anticipatory guidance given. Patient agrees to follow-up as directed and is aware of reasons to seek care at the emergency department. Portions of this record may have been created with voice recognition software Level of Care: Express Care Visit Vital Signs Vital signs: Vital Signs Temperature 97.7 F 03/24/24 15:45 Pulse Rate 77 03/24/24 15:45 Respiratory Rate 18 03/24/24 15:45 Blood Pressure 138/74 03/24/24 15:45 Pulse Oximetry 99 03/24/24 15:45 Oxygen Delivery Room Air 03/24/24 15:45 Temperature 97.7 F 03/24/24 15:45 Pulse Rate 77 09
== END 2024-03-24 16:16 | disposition home or self-care (01) ==
PROVIDERS: Emergency Provider Nurse Practitioner Family; PCP Internal Medicine
DX: S91.111A Laceration without foreign body of right great toe without damage to nail, initial encounter (principal); W45.0XXA Nail entering through skin, initial encounter; K21.9 Gastro-esophageal reflux disease without esophagitis; J45.909 Unspecified asthma, uncomplicated
CPT/HCPCS: 99213; G0463

== ENCOUNTER 2024-09-08 15:34 | Emergency (ER) | payer SELFPAY ==
[2024-09-08 15:40] VITALS: BP 154/96; PULSE 86; RESP 20; TEMP 36.7; O2SAT 100
--- NOTE | 2024-09-08 15:55 | ED.URI ---
HPI - URI/Sore Throat General Chief Complaint: Upper Respiratory Infection Stated Complaint: throat/exposed to covid and flu Source: patient and RN notes reviewed Mode of arrival: ambulatory Limitations: no limitations History of Present Illness HPI Narrative: 34-year-old female with hx asthma presented complaint cough, sore throat, nasal drainage and hoarse voice. Onset 1 week, worsening the past 2 days. Endorses experiencing coughing fits. Using albuterol inhaler, nasal spray and Sudafed for symptoms. Denies shortness of breath, wheezing nausea vomiting, diarrhea, fevers or lethargy. MD elicited complaint: cough Related Data Home Medications ?Medication ?Instructions ?Recorded ?Confirmed ?Last Taken ?Type escitalopram oxalate 5 mg tablet mg 03/24/24 Unknown History meloxicam 15 mg tablet mg 03/24/24 Unknown History tizanidine 4 mg tablet mg 03/24/24 Unknown History albuterol sulfate 90 mcg/actuation inhalation 09/08/24 Unknown History aerosol inhaler Allergies Allergy/AdvReac Type Severity Reaction Status Date / Time No Known Allergies Allergy Verified 08/10/23 13:41 Review of Systems Review of Systems: ROS per HPI PMFSH Past Medical History Medical History Abnormal Pap smear of cervix 05/17/21, LSIL Acid reflux Asthma Hepatitis C Vaginal delivery X3 Surgical History Surgical History History of ankle surgery 2015, 2017 History of bilateral tubal ligation 01/31/21 History of colposcopy 09/07/21 Family History Family History Mother Diabetes mellitus Hypertension Hyperlipidemia Cerebrovascular accident Grandparent Diabetes mellitus Cerebrovascular accident Hypertension Hyperlipidemia Father Cerebrovascular accident Sibling Hypertension Hyperlipidemia Social History Social History Smoking status: Never smoker Second hand tobacco smoke exposure: No Alcohol intake: former Substance use: current Substance use type: marijuana Last use: November 2020 Living arrangements: with family Spiritual care concerns: No Exam Narrative: GENERAL: mildly Ill-appearing, nontoxic no acute distress. EYES: PERRLA, conjunctivae clear ENT: Mucous membranes moist. bilateral TM erythematous, bulging and intact; canal not erythematous, no drainage. Hoarse voice.Oropharynx erythematous without lesions or exudate, no drooling, no trismus, uvula midline. No tripod positioning, muffled voice, soft palate or pharyngeal wall bulging NECK: Supple. No lymphadenopathy CHEST: Clear to auscultation, breath sounds equal. No wheezing, rhonchi, rales, or stridor. No respiratory distress, speaks in full sentences. HEART: Regular rate and rhythm. No murmur heard. SKIN: Warm, dry, no rash. NEURO: Alert and oriented x3. PSYCH: Normal mood and affect Course Course Emergency Course: Patient is aware of diagnosis, understands and agrees to treatment plan. Anticipatory guidance given. Patient agrees to follow-up as directed and is aware of reasons to seek care at the emergency department. Portions of this record may have been created with voice recognition software Level of Care: Express Care Visit Vital Signs Vital signs: Vital Signs Temperature 98.0 F 09/08/24 15:40 Pulse Rate 86 09/08/24 15:40 Respiratory Rate 20 09/08/24 15:40 Blood Pressure 154/96 H 09/08/24 15:40 Pulse Oximetry 100 09/08/24 15:40 Oxygen Delivery Room Air 09/08/24 15:40 Temperature 98.0 F 09/08/24 15:40 Pulse Rate 86 09/08/24 15:40 Respiratory Rate 20 09/08/24 15:40 Blood Pressure 154/96 H 09/08/24 15:40 Pulse Oximetry 100 09/08/24 15:40 Oxygen Delivery Room Air 09/08/24 15:40 reviewed MDM - URI/Sore Throat MDM Narrative Medical decision making narrative: Discussed physical exam findings,, bilateral AOM Advised supportive measures and signs/symptoms to go to the ER. Pt is appropriate for outpt treatment and f/u. Differential Diagnosis Differential diagnosis: Likely upper respiratory infection, sinusitis and viral infection Discharge Plan Discharge Clinical Impression: Otitis media, Bronchitis Patient Disposition: Home, Self-Care Condition: Stable Instructions: Antibiotic Form, Ear Infection (ED) Additional Instructions: Take antibiotics as directed For double ear infection Recommend antihistamine such as Benadryl, Zyrtec or Jessica for sinus congestion Flonase nasal spray, 1 spray in each nostril once daily until symptoms improve Symptomatic treatment includes: rest, fluids, and increase humidity of the air at home. Tylenol 1000mg every 8 hours as needed to reduce fever, pain cough syrup may cause drowsiness, take according to package directions Please schedule a follow-up visit with your personal physician If your symptoms persist, change or worsen significantly, go to the emergency department for further evaluation. Patient Language: Czech Prescriptions: New benzonatate 200 mg capsule 200 mg PO TID PRN (Reason: cough) Qty: 20 0RF methylprednisolone [Medrol (Pankaj)] 4 mg tablets,dose pack See Rx Instructions .ROUTE .COMPLEX Qty: 21 0RF Rx Instructions: orally per package directions amoxicillin-pot clavulanate 875-125 mg tablet 1 tablet PO Q12H 7 Days Qty: 14 0RF No Action tizanidine 4 mg tablet meloxicam 15 mg tablet escitalopram oxalate 5 mg tablet albuterol sulfate 90 mcg/actuation HFA aerosol inhaler INHALATION Follow-up/Referrals: PHYSICIAN NOT ON STAFF,NONSTAFF [Primary Care Provider] - Stand Alone Forms: Work/School Release IP Time of Disposition: 16:03
== END 2024-09-08 16:06 | disposition home or self-care (01) ==
PROVIDERS: Emergency Provider Nurse Practitioner Family
DX: H66.93 Otitis media, unspecified, bilateral (principal); J40 Bronchitis, not specified as acute or chronic; J45.909 Unspecified asthma, uncomplicated; K21.9 Gastro-esophageal reflux disease without esophagitis
CPT/HCPCS: 99213; G0463